=== PATIENT | female | born 1995 | race Asian ===

== ENCOUNTER 2017-01-22 07:39 | Emergency (ER) | payer SELFPAY ==
[~2017-01-22] VITALS: Ht 144.8 cm; Wt 46.4 kg
[2017-01-22 08:10] VITALS: BP 122/71
== END 2017-01-22 08:39 | disposition home or self-care (01) ==
LOC: EMS 07:41
DX: Z02.1 Encounter for pre-employment examination (principal); S92.401D Displaced unspecified fracture of right great toe, subsequent encounter for fracture with routine healing; X58.XXXD Exposure to other specified factors, subsequent encounter
CPT/HCPCS: 99281